=== PATIENT | female | born 1985 | race American Indian/Alaskan Native ===

== ENCOUNTER 2016-11-29 01:15 | Emergency (ER) | payer SELFPAY ==
[2016-11-29] MEDS ORDERED: TYLENOL PO ONE (01:50)
[2016-11-29] MEDS ORDERED: TYLENOL ONE (01:58)
[2016-11-29 02:43] LABS: Bilirubin,Urine NEG (Negative); Blood,Urine SM (Negative); Ketones,Urine NEG (Negative); Leukocyte Esterase,Urine MOD (Negative); Mucus,Urine FEW /HPF; Nitrite,Urine NEG (Negative); Protein,Urine <15 mg/dL mg/dL (Negative); Urobilinogen,Urine < 2.0 mg/dL (<2.0)
[2016-11-29 02:57] LABS: Basophils % (Auto) 0.6 % (0.0-1.8); Eosinophils % (Auto) 3.4 % (0.0-4.3); Hematocrit 38.2 % (30.3-42.9); Mean Corpuscular HGB Conc 32 % (30-34); Mean Corpuscular Volume 79 fl (79-97); Platelet Count 351 K/mm3 (140-440); Red Blood Count 4.86 M/mm3 (3.65-5.03); Red Cell Distribution Width 15.5 % (13.2-15.2); White Blood Count 14.5 K/mm3 (4.5-11.0)
[2016-11-29 02:58] LABS: Mean Corpuscular Hemoglobin 25 pg (28-32)
[2016-11-29 03:45] LABS: Alanine Aminotransferase 15 units/L (7-56); Albumin 3.9 g/dL (3.9-5); Albumin/Globulin Ratio 1.3 %; Alkaline Phosphatase 75 units/L (35-129); Anion Gap 22 mmol/L; BUN/Creatinine Ratio 13.75; Bilirubin,Total < 0.20 mg/dL (0.1-1.2); Blood Urea Nitrogen 11 mg/dL (7-17); Calcium 9.3 mg/dL (8.4-10.2); Carbon Dioxide 21 mmol/L (22-30); Chloride 104.2 mmol/L (98-107); Glucose 129 mg/dL (65-100); Lipase 36 units/L (13-60); Potassium 4.1 mmol/L (3.6-5.0); Sodium 143 mmol/L (137-145); Total Protein 6.9 g/dL (6.3-8.2)
[2016-11-29] MEDS ORDERED: TORADOL IV ONE (06:11)
[2016-11-29] MEDS ORDERED: NACL 0.9% 1000 ML 1,000 ML IV ONE (06:11)
[2016-11-29] MEDS ORDERED: ZOFRAN IV ONE (06:11)
--- NOTE | 2016-11-29 07:44 | Cat Scan Report ---
CT ABDOMEN AND PELVIS WITHOUT CONTRAST INDICATION: Evaluate for renal stones. COMPARISON: 09/12/2012 FINDINGS: Noncontrast abdomen and pelvis CT performed. LUNG BASES: A 2-3 mm noncalcified peripheral/pleural based right middle lobe nodular density incidentally now partially imaged, axial image 1, series 2, nonspecific. Slight nonspecific distal esophageal prominence or thickening. ABDOMEN: Please note that sensitivity to detect small visceral lesions is limited due to the absence of intravenous or oral contrast. Left hepatic lobe tip again extends into the left upper quadrant. Right hepatic lobe approximately 17.5 cm in length. Tiny air-containing gallstones toward the fundus now not excluded within a contracted, suboptimally assessed gallbladder with exaggerated wall thickness. Otherwise grossly unremarkable unenhanced liver, spleen, pancreas, left adrenal, aorta, IVC, kidneys and unopacified bowel. No radiopaque renal calculus. Stable 2 tiny right adrenal calcifications. Normal appendix. Usual colonic stool. No ascites. Few small, subcentimeter retroperitoneal and mesenteric lymph nodes, the largest anterior to the right kidney inferiorly measuring approximately 1 cm, axial image 183, series 2. PELVIS: Urinary bladder, uterus, adnexa/ovaries and the rectosigmoid demonstrate normal CT appearance with interval resolution of left adnexal/ovarian cyst. No free fluid or definite size significant adenopathy. L1 superior endplate irregularities/possible Schmorl's nodes and slight thoracolumbar kyphosis apex at T12-L1 also again noted. No focal aggressive osseous lesions. CONCLUSION: 1. No acute abdomen or pelvic CT abnormality on this unenhanced exam. Specifically, no hydronephrosis or radiopaque renal calculi noted. 2. Contracted gallbladder with possible noncalcified gallstone, as above. 3. Various other incidental findings, as above. Thank you for the opportunity to participate in this patient's care.
[2016-11-29] MEDS ORDERED: MORPHINE IV ONE (07:46)
--- NOTE | 2016-11-29 07:51 | Emergency Department Report ---
HPI - General Chief Complaint: Abdominal Pain Time Seen by Provider: 11/29/16 07:18 - [facility] HPI: Plan 11-year-old female presents to ED complaining of bilateral flank pain for the past 4 days. Patient describes the pain as sharp in nature. Patient also admits lower mid pelvic cramping associated with dysuria, urgency and discoloration in her urine. She denies any fever, nausea, vomiting, chest pain, shortness of breath, diarrhea, constipation ED Past Medical Hx - Past Medical History Previous Medical History?: Yes Hx Hypertension: Yes - Surgical History Past Surgical History?: No - Social History Smoking Status: Current Every Day Smoker Substance Use Type: Alcohol - Medications Home Medications: Home Medications Medication Instructions Recorded Confirmed Last Taken Type Naproxen [Naprosyn] 500 mg PO BID #40 tablet 11/29/16 Unknown Rx Phenazopyridine [Pyridium] 200 mg PO BID #10 tab 11/29/16 Unknown Rx ED Review of Systems ROS: Stated complaint: CHEST, BACK, AND ABDOMINAL PAIN Other details as noted in HPI Constitutional: denies: chills, fever Eyes: denies: eye pain, eye discharge, vision change ENT: denies: ear pain, throat pain Respiratory: denies: cough, shortness of breath, wheezing Cardiovascular: denies: chest pain, palpitations Endocrine: no symptoms reported Gastrointestinal: denies: abdominal pain, nausea, diarrhea Genitourinary: denies: urgency, dysuria, discharge Musculoskeletal: denies: back pain, joint swelling, arthralgia Skin: denies: rash, lesions Neurological: denies: headache, weakness, paresthesias Psychiatric: denies: anxiety, depression Hematological/Lymphatic: denies: easy bleeding, easy bruising Physical Exam - Physical Exam Vital Signs: Vital Signs 11/29/16 11/29/16 01:27 02:10 Temperature 98.9 F Pulse Rate 97 H Respiratory 16 Rate Blood Pressure 153/88 O2 Sat by Pulse 97 Oximetry Physical Exam: GENERAL: Alert and oriented x3, no apparent distress, Normal Gait, atraumatic. LUNGS: Symetrical with respiration, No wheezing, no rales or crackles, CTAB. HEART: S1, S2 present, regular rate and rhythm without murmur, no rubs, no gallops. Non tender to palpation ABDOMEN: No organomegaly was noted,Positive bowel sounds, soft, and non- distended. . Nontender to palpation on all Quadrants, NO CVA tenderness. Mild tenderness to palpation of the lower mid Pelvic region BACK: Full range of motion, no spinal tenderness, nontender to palpation. PSYCHIATRIC: Mood is congruent with affect, denies suicidal or homicidal ideations. SKIN: Warm and dry, No lesions, No ulceration or induration present. ED Course Vital Signs 11/29/16 11/29/16 01:27 02:10 Temperature 98.9 F Pulse Rate 97 H Respiratory 16 Rate Blood Pressure 153/88 O2 Sat by Pulse 97 Oximetry ED Medical Decision Making - Lab Data Result diagrams: 11/29/16 02:30 11/29/16 02:30 Laboratory Last Values WBC 14.5 K/mm3 (4.5-11.0) H 11/29/16 02:30 RBC 4.86 M/mm3 (3.65-5.03) 11/29/16 02:30 Hgb 12.0 gm/dl (10.1-14.3) 11/29/16 02:30 Hct 38.2 % (30.3-42.9) 11/29/16 02:30 MCV 79 fl (79-97) 11/29/16 02:30 MCH 25 pg (28-32) L 11/29/16 02:30 MCHC 32 % (30-34) 11/29/16 02:30 RDW 15.5 % (13.2-15.2) H 11/29/16 02:30 Plt Count 351 K/mm3 (140-440) 11/29/16 02:30 Lymph % (Auto) 26.1 % (13.4-35.0) 11/29/16 02:30 [place] % (Auto) 6.1 % (0.0-7.3) 11/29/16 02:30 Eos % (Auto) 3.4 % (0.0-4.3) 11/29/16 02:30 Baso % (Auto) 0.6 % (0.0-1.8) 11/29/16 02:30 Lymph # 3.8 K/mm3 (1.2-5.4) 11/29/16 02:30 [place] # 0.9 K/mm3 (0.0-0.8) H 11/29/16 02:30 Eos # 0.5 K/mm3 (0.0-0.4) H 11/29/16 02:30 Baso # 0.1 K/mm3 (0.0-0.1) 11/29/16 02:30 Seg Neutrophils % 63.8 % (40.0-70.0) 11/29/16 02:30 Seg Neutrophils # 9.3 K/mm3 (1.8-7.7) H 11/29/16 02:30 Sodium 143 mmol/L (137-145) 11/29/16 02:30 Potassium 4.1 mmol/L (3.6-5.0) 11/29/16 02:30 Chloride 104.2 mmol/L (98-107) 11/29/16 02:30 Carbon Dioxide 21 mmol/L (22-30) L 11/29/16 02:30 Anion Gap 22 mmol/L 11/29/16 02:30 BUN 11 mg/dL (7-17) 11/29/16 02:30 Creatinine 0.8 mg/dL (0.7-1.2) 11/29/16 02:30 Estimated GFR > 60 ml/min 11/29/16 02:30 BUN/Creatinine Ratio 13.75 % 11/29/16 02:30 Glucose 129 mg/dL (65-100) H 11/29/16 02:30 Calcium 9.3 mg/dL (8.4-10.2) 11/29/16 02:30 Total Bilirubin < 0.20 mg/dL (0.1-1.2) 11/29/16 02:30 AST 14 units/L (5-40) 11/29/16 02:30 ALT 15 units/L (7-56) 11/29/16 02:30 Alkaline Phosphatase 75 units/L (35-129) 11/29/16 02:30 Troponin T < 0.010 ng/mL (0.00-0.029) 11/29/16 02:30 Total Protein 6.9 g/dL (6.3-8.2) 11/29/16 02:30 Albumin 3.9 g/dL (3.9-5) 11/29/16 02:30 Albumin/Globulin Ratio 1.3 % 11/29/16 02:30 Lipase 36 units/L (13-60) 11/29/16 02:30 Urine Color Straw (Yellow) 11/29/16 02:31 Urine Turbidity Clear (Clear) 11/29/16 02:31 Urine pH 6.0 (5.0-7.0) 11/29/16 02:31 Ur Specific [place] 1.012 (1.003-1.030) 11/29/16 02:31 Urine Protein <15 mg/dl mg/dL (Negative) 11/29/16 02:31 Urine Glucose (UA) Neg mg/dL (Negative) 11/29/16 02:31 Urine Ketones Neg mg/dL (Negative) 11/29/16 02:31 Urine Blood Sm (Negative) 11/29/16 02:31 Urine Nitrite Neg (Negative) 11/29/16 02:31 Urine Bilirubin Neg (Negative) 11/29/16 02:31 Urine Urobilinogen < 2.0 mg/dL (<2.0) 11/29/16 02:31 Ur Leukocyte Esterase Mod (Negative) 11/29/16 02:31 Urine WBC (Auto) 23.0 /HPF (0.0-6.0) H 11/29/16 02:31 Urine RBC (Auto) 5.0 /HPF (0.0-6.0) 11/29/16 02:31 U Epithel Cells (Auto) < 1.0 /HPF (0-13.0) 11/29/16 02:31 Urine Mucus Few /HPF 11/29/16 02:31 Urine HCG, Qual Negative (Negative) 11/29/16 02:31 - Radiology Data Radiology results: report reviewed, image reviewed CT ABDOMEN AND PELVIS WITHOUT CONTRAST INDICATION: Evaluate for renal stones. COMPARISON: 09/12/2012 FINDINGS: Noncontrast abdomen and pelvis CT performed. LUNG BASES: A 2-3 mm noncalcified peripheral/pleural based right middle lobe nodular density incidentally now partially imaged, axial image 1, series 2, nonspecific. Slight nonspecific distal esophageal prominence or thickening. ABDOMEN: Please note that sensitivity to detect small visceral lesions is limited due to the absence of intravenous or oral contrast. Left hepatic lobe tip again extends into the left upper quadrant. Right hepatic lobe approximately 17.5 cm in length. Tiny air-containing gallstones toward the fundus now not excluded within a contracted, suboptimally assessed gallbladder with exaggerated wall thickness. Otherwise grossly unremarkable unenhanced liver, spleen, pancreas, left adrenal, aorta, IVC, kidneys and unopacified bowel. No radiopaque renal calculus. Stable 2 tiny right adrenal calcifications. Normal appendix. Usual colonic stool. No ascites. Few small, subcentimeter retroperitoneal and mesenteric lymph nodes, the largest anterior to the right kidney inferiorly measuring approximately 1 cm, axial image 183, series 2. PELVIS: Urinary bladder, uterus, adnexa/ovaries and the rectosigmoid demonstrate normal CT appearance with interval resolution of left adnexal/ovarian cyst. No free fluid or definite size significant adenopathy. L1 superior endplate irregularities/possible Schmorl's nodes and slight thoracolumbar kyphosis apex at T12-L1 also again noted. No focal aggressive osseous lesions. CONCLUSION: 1. No acute abdomen or pelvic CT abnormality on this unenhanced exam. Specifically, no hydronephrosis or radiopaque renal calculi noted. 2. Contracted gallbladder with possible noncalcified gallstone, as above. 3. Various other incidental findings, as above. Thank you for the opportunity to participate in this patient's care. Transcribed By: RS Dictated By: GABRIELA HART MD Electronically Authenticated By: GABRIELA HART MD Signed Date/Time: 11/29/16 0736 - Medical Decision Making 31-year-old female presents with UTI/pyelonephritis E course: CBC, CMP, troponin, urinalysis, urine test, CT of the abdomen ordered. CBC shows leukocytosis, paresthesias negative, urinalysis positive for moderate leukocytes in leukorrhea CT of the abdomen shows: See results above Discussed all findings with the patient. Patient received a liter of fluid and pain control in the ED, as well as Rocephin to treat UTI/pyelonephritis Discussed with patient to follow up with primary care physician in 3-5 days Discussed home prescription of pain control. Vital signs are normal patient is in no acute distress she is resting comfortably in the room Critical care attestation.: If time is entered above; I have spent that time in minutes in the direct care of this critically ill patient, excluding procedure time. ED Disposition Clinical Impression: Pyelonephritis UTI (urinary tract infection) Qualifiers: Urinary tract infection type: acute cystitis Hematuria presence: with hematuria Qualified Code(s): N30.01 - Acute cystitis with hematuria Disposition: TO HOME OR SELFCARE Is pt being admited?: No Does the pt Need Aspirin: No Condition: Stable Instructions: Urinary Tract Infection in Women (ED), Acute Pyelonephritis (ED) , Abdominal Pain (ED), Flank Pain (ED) Additional Instructions: Symptoms worsen return to ED Take her medication as prescribed Prescriptions: Naproxen [Naprosyn] 500 mg PO BID #40 tablet Phenazopyridine [Pyridium] 200 mg PO BID #10 tab Referrals: PRIMARY CAREMD [Primary Care Provider] - 3-5 Days JI YOU MD [Referring] - 3-5 Days [facility] [Outside] - 3-5 Days [facility] [Outside] - 3-5 Days Forms: Accompanied Note, Work/School Release Form(ED)
[2016-11-29] MEDS ORDERED: ROCEPHIN 250 MG in NACL 0.9% 50 ML IV ONE (08:30)
[2016-11-29 09:10] VITALS: BP 121/69
== END 2016-11-29 10:00 | disposition home or self-care (01) ==
LOC: ED 01:15
DX: N12 Tubulo-interstitial nephritis, not specified as acute or chronic (principal); N39.0 Urinary tract infection, site not specified; I10 Essential (primary) hypertension; F17.210 Nicotine dependence, cigarettes, uncomplicated
CPT/HCPCS: 36415; 74176; 80053; 81001; 81025; 83690; 84484; 85025; 96361; 96365; 96375; 99284; J1885; J2270; J2405; J7030; J0696